=== PATIENT | female | born 1970 | race American Indian/Alaskan Native ===

== ENCOUNTER 2016-07-21 06:09 | Emergency (ER) | payer BC, OTHER ==
[2016-07-21 07:09] LABS: Basophils % (Auto) 0.6 % (0.0-1.8); Eosinophils % (Auto) 1.1 % (0.0-4.3); Hematocrit 38.2 % (30.3-42.9); Hemoglobin 12.4 gm/dl (10.1-14.3); Mean Corpuscular HGB Conc 33 % (30-34); Mean Corpuscular Hemoglobin 28 pg (28-32); Mean Corpuscular Volume 86 fl (79-97); Platelet Count 197 K/mm3 (140-440); Red Blood Count 4.43 M/mm3 (3.65-5.03); Red Cell Distribution Width 12.9 % (13.2-15.2); White Blood Count 6.5 K/mm3 (4.5-11.0)
[2016-07-21 07:24] LABS: Anion Gap 16 mmol/L; BUN/Creatinine Ratio 23.75; Blood Urea Nitrogen 19 mg/dL (7-17); Calcium 8.9 mg/dL (8.4-10.2); Carbon Dioxide 24 mmol/L (22-30); Glucose 85 mg/dL (65-100); Potassium 4.1 mmol/L (3.6-5.0); Sodium 138 mmol/L (137-145)
[2016-07-21] MEDS ORDERED: ZOFRAN IM ONE (09:51)
[2016-07-21] MEDS ORDERED: PERCOCET 5/325 PO ONE (10:08)
[2016-07-21] MEDS ORDERED: TORADOL IM ONE (10:08)
[2016-07-21] MEDS ORDERED: ZOFRAN ODT PO ONE (10:10)
[2016-07-21 10:34] VITALS: BP 121/58
--- NOTE | 2016-07-21 10:40 | Emergency Department Report ---
ED Chest Pain HPI - General Chief Complaint: Chest Pain Stated Complaint: CHEST/SHOULDER PAIN Time Seen by Provider: 07/21/16 09:44 Source: patient Mode of arrival: Ambulatory Limitations: No Limitations - History of Present Illness Initial Comments: 46-year-old female with a past medical history of hypertension presents to the hospital complaining of chest and right shoulder pain. Patient states initially had right shoulder pain 2 weeks ago. Patient was using heat and NSAIDs and pain improved. Last 3 days pain has worsened and she also had accompanying intermittent mid sternal chest pain described as sharp. Pain in the chest is mild at this time in a more prominent pain appears to be in the right shoulder. Right shoulder pain described as a constant throbbing pain with palpation and movement. Patient is right-hand dominant but denies any previous injury. Positive nausea without vomiting. Patient also complained of some pain to the left side of her face. Negative stress test within 5 years. 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 Denies recent travel or calf tenderness. Patient states she had a history of hypertension but has been off meds for the past 3 years since her blood pressure has improved. Severity scale (0 -10): 0 - Related Data Previous Rx's Medication Instructions Recorded Last Taken Type HYDROcodone/APAP 5-325 [[place] 1 each PO Q6HR PRN #20 tablet 07/21/16 Unknown Rx 5/325] Ibuprofen [Motrin] 600 mg PO Q8H PRN #30 tablet 07/21/16 Unknown Rx Allergies Allergy/AdvReac Type Severity Reaction Status Date / Time No Known Allergies Allergy Unverified 07/21/16 06:33 ROSALIA score - Rosalia Score Age > 65: (0) No Aspirin use within the Past 7 Days: (0) No 3 or more CAD Risk Factors: (0) No 2 or more Angina events in past 24 hrs: (0) No Known CAD with more than 50% Stenosis: (0) No Elevated Cardiac Markers: (0) No ST Deviation Greater than 0.5mm: (0) No ROSALIA Score: 0 ED Review of Systems ROS: Stated complaint: CHEST/SHOULDER PAIN Other details as noted in HPI Comment: All other systems reviewed and negative Other: Constitutional: No fevers chills Eyes: No eye pain visual changes ENT: No ear pain or throat pain Neck: Denies pain Respiratory: Denies cough wheezing shortness of breath Cardiovascular: Denies chest pain, palpitations, syncope GI: Denies abdominal pain, nausea, vomiting : Denies dysuria Musculoskeletal: Denies back pain, joint swelling Skin: Denies rash, lesions, erythema Neurologic: Denies headache, numbness, weakness Psychiatric: Denies suicidal ideation, hallucinations ED Past Medical Hx - Past Medical History Hx Hypertension: Yes - Surgical History Additional Surgical History: hysterectomy, tubal ligation - Family History Family history: other (CHF) - Social History Smoking Status: Never Smoker Substance Use Type: None - Medications Home Medications: Home Medications Medication Instructions Recorded Confirmed Last Taken Type HYDROcodone/APAP 5-325 [[place] 1 each PO Q6HR PRN #20 tablet 07/21/16 Unknown Rx 5/325] Ibuprofen [Motrin] 600 mg PO Q8H PRN #30 tablet 07/21/16 Unknown Rx ED Physical Exam - General Limitations: No Limitations - Other Other exam information: General: No limitations, patient is alert in no acute distress Head exam: Atraumatic, normocephalic Eyes exam: Normal appearance, pupils equal reactive to light, extraocular movements intact ENT: Moist mucous membrane, normal oropharynx Neck exam: Normal inspection, full range of motion, no meningismus nontender Respiratory exam: Clear to auscultation bilateral, no wheezes, rales, crackles Cardiovascular: Normal rate and rhythm, normal heart sounds Abdomen: Soft, nondistended, and nontender, with normal bowel sounds, no rebound, or guarding Extremity: Generalized right shoulder tenderness to palpation. Pain with external rotation and patient is unable to abduct arm greater than 90 degrees. NO warmth or erythema Back: Normal Inspection, full range of motion, no tenderness Neurologic: Alert, oriented x3, cranial nerves intact, no motor or sensory deficit Psychiatric: normal affect, normal mood Skin: Warm, dry, intact ED Course Vital Signs 07/21/16 07/21/16 06:23 10:33 Temperature 98.2 F 98.7 F Pulse Rate 79 80 Respiratory 18 Rate Blood Pressure 148/67 Blood Pressure 121/58 [Left] O2 Sat by Pulse 100 100 Oximetry - Reevaluation(s) Reevaluation #1: 07/21/16 10:42 Patient is driving therefore Toradol given. Sling also provided 07/21/16 10:42 ED Medical Decision Making - Lab Data Result diagrams: 07/21/16 06:53 07/21/16 06:53 Lab Results 07/21/16 07/21/16 07/21/16 Range/Units 06:53 06:53 09:19 WBC 6.5 (4.5-11.0) K/mm3 RBC 4.43 (3.65-5.03) M/mm3 Hgb 12.4 (10.1-14.3) gm/dl Hct 38.2 (30.3-42.9) % MCV 86 (79-97) fl MCH 28 (28-32) pg MCHC 33 (30-34) % RDW 12.9 L (13.2-15.2) % Plt Count 197 (140-440) K/mm3 Lymph % (Auto) 32.6 (13.4-35.0) % Bradley % (Auto) 12.2 H (0.0-7.3) % Eos % (Auto) 1.1 (0.0-4.3) % Baso % (Auto) 0.6 (0.0-1.8) % Lymph # 2.1 (1.2-5.4) K/mm3 Bradley # 0.8 (0.0-0.8) K/mm3 Eos # 0.1 (0.0-0.4) K/mm3 Baso # 0.0 (0.0-0.1) K/mm3 Seg Neutrophils % 53.5 (40.0-70.0) % Seg Neutrophils # 3.5 (1.8-7.7) K/mm3 Sodium 138 (137-145) mmol/L Potassium 4.1 (3.6-5.0) mmol/L Chloride 102.0 (98-107) mmol/L Carbon Dioxide 24 (22-30) mmol/L Anion Gap 16 mmol/L BUN 19 H (7-17) mg/dL Creatinine 0.8 (0.7-1.2) mg/dL Estimated GFR > 60 ml/min BUN/Creatinine Ratio 23.75 % Glucose 85 (65-100) mg/dL Calcium 8.9 (8.4-10.2) mg/dL Troponin T < 0.010 < 0.010 (0.00-0.029) ng/mL - EKG Data -: EKG Interpreted by Me - Medical Decision Making Patient pain to the shoulder appears to be musculoskeletal in origin. Chest pain is atypical and patient denies other symptoms of PE/DVT. Patient declined imaging i.e. x-rays at this time since she plans to follow-up is with orthopedics as recommended. Patient also has 2 negative sets of cardiac enzymes with unremarkable EKG - Differential Diagnosis atypical chest pain, MS, PE, MSK pain, adhesive Capsulitis, shoulder strain Critical Care Time: No Critical care attestation.: If time is entered above; I have spent that time in minutes in the direct care of this critically ill patient, excluding procedure time. ED Disposition Clinical Impression: Shoulder pain, right, Atypical chest pain Disposition: DISCHARGED TO HOME OR SELFCARE Is pt being admited?: No Does the pt Need Aspirin: No Condition: Stable Instructions: Chest Pain (ED), Shoulder Sprain (ED) Additional Instructions: Take the medication as needed for pain. Hydrocodone/[place] is a narcotic and may cause constipation as well as drowsiness. Do not drive while taking this medication and take stool softeners as needed. Follow up with orthopedic doctor provided with a doctor of your choice. Continue to wear sling as needed for comfort. Return if symptoms worsen. Prescriptions: HYDROcodone/APAP 5-325 [[place] 5/325] 1 each PO Q6HR PRN #20 tablet PRN Reason: Pain Ibuprofen [Motrin] 600 mg PO Q8H PRN #30 tablet PRN Reason: Pain Referrals: PRIMARY CAREMD [Primary Care Provider] - 3-5 Days JIGNESH NANCE MD [Staff Physician] - 3-5 Days Time of Disposition: 10:44
== END 2016-07-21 10:50 | disposition home or self-care (01) ==
LOC: ED 06:09
DX: R07.89 Other chest pain (principal); M25.511 Pain in right shoulder; I10 Essential (primary) hypertension
CPT/HCPCS: 36415; 80048; 84484; 85025; 93005; 93010; 96372; 99285; J1885; Q0162